=== PATIENT | male | born 1985 | race Caucasian/White ===

== ENCOUNTER 2018-11-09 23:23 | Emergency (ER) | payer OTHER ==
[~2018-11-09] VITALS: Ht 177.8 cm; Wt 99.3 kg
[2018-11-09 23:29] VITALS: Ht 177.8 cm; Wt 99.3 kg
[2018-11-10 00:43] VITALS: BP 112/55
== END 2018-11-10 00:43 | disposition home or self-care (01) ==
LOC: ED 23:23
DX: L03.311 Cellulitis of abdominal wall (principal)

== ENCOUNTER 2019-01-21 08:48 | Emergency (ER) | payer OTHER ==
[~2019-01-21] VITALS: Ht 180.3 cm; Wt 98.9 kg
[2019-01-21 08:56] VITALS: Ht 180.3 cm; Wt 98.9 kg
[2019-01-21 12:12] VITALS: BP 119/61
== END 2019-01-21 12:12 | disposition home or self-care (01) ==
LOC: ED 08:48
DX: J10.1 Influenza due to other identified influenza virus with other respiratory manifestations (principal); J98.01 Acute bronchospasm
CPT/HCPCS: 87804; J2930; J7613; J7644

== ENCOUNTER 2019-09-24 23:37 | Emergency (ER) | payer OTHER, SELFPAY ==
[~2019-09-24] VITALS: Ht 180.3 cm; Wt 105.7 kg
[2019-09-24 23:39] VITALS: BP 120/70; Ht 180.3 cm; Wt 105.7 kg
== END 2019-09-25 00:34 | disposition home or self-care (01) ==
LOC: ED 23:37
DX: U07.1 COVID-19 (principal)
CPT/HCPCS: U0003-CS

== ENCOUNTER 2019-12-21 21:16 | Emergency (ER) | payer OTHER, SELFPAY ==
[~2019-12-21] VITALS: Ht 177.8 cm; Wt 104.3 kg
[2019-12-21 21:18] VITALS: Ht 177.8 cm; Wt 104.3 kg
[2019-12-21 21:45] VITALS: BP 117/80
== END 2019-12-21 21:45 | disposition home or self-care (01) ==
LOC: ED 21:16
DX: R11.10 Vomiting, unspecified (principal); R53.83 Other fatigue
CPT/HCPCS: Q0162